=== PATIENT | male | born 1945 | race Caucasian/White ===

== ENCOUNTER 2022-03-08 10:58 | Emergency (ER) | payer MEDICARE ==
[~2022-03-08 10:58] MED LIST: LISINOPRIL20 MG PO; METFORMIN HCL1000 MG PO; PIOGLITAZONE HC45 MG PO; ZANTAC 150 MG150 MG PO; ZOCOR20 MG PO
[2022-03-08 13:47] LABS: HEMOGLOBIN 11.3 gm/dl (14.0-17.5); RED BLOOD COUNT 3.86 M/UL (4.20-5.50); WHITE BLOOD COUNT 9.5 K/UL (4.5-11.0)
[2022-03-08 14:20] LABS: BUN/CREATININE RATIO 18 (0-10)
[2022-03-08] MEDS ORDERED: LEVOFLOXACIN750 MG PO ×2 (14:46→15:11)
== END 2022-03-08 15:20 | disposition home or self-care (01) ==
LOC: ER1 10:58
PROVIDERS: Physician Assistant
DX: S61.032A Puncture wound without foreign body of left thumb without damage to nail, initial encounter (principal); L03.012 Cellulitis of left finger; F17.200 Nicotine dependence, unspecified, uncomplicated; E11.9 Type 2 diabetes mellitus without complications; Z23 Encounter for immunization; W45.8XXA Other foreign body or object entering through skin, initial encounter; Y92.009 Unspecified place in unspecified non-institutional (private) residence as the place of occurrence of the external cause
CPT/HCPCS: 73130; 80053; 85007; 85027; 86140; 87040; 90471; 90714; 96365; 96375; 99283; J1885; J1956

== ENCOUNTER 2022-03-09 19:16 | Inpatient (IN) | payer MEDICARE ==
[~2022-03-09] VITALS: Ht 177.8 cm; Wt 94.8 kg
[~2022-03-09 19:16] MED LIST changes: +LEVOFLOXACIN750 MG PO
[2022-03-09 20:08] LABS: HEMOGLOBIN 11.8 gm/dl (14.0-17.5); RED BLOOD COUNT 4.01 M/UL (4.20-5.50); WHITE BLOOD COUNT 8.5 K/UL (4.5-11.0)
[2022-03-10 06:19] LABS: HEMOGLOBIN 10.4 gm/dl (14.0-17.5); RED BLOOD COUNT 3.61 M/UL (4.20-5.50)
[2022-03-10] MEDS ORDERED: FAMOTIDINE40 MG PO (12:02)
[2022-03-10] MEDS ORDERED: AMLODIPINE BESY10 MG PO (12:10)
[2022-03-10] MEDS ORDERED: SIMVASTATIN20 MG PO (12:12)
[2022-03-11 07:03] LABS: HEMOGLOBIN 11.1 gm/dl (14.0-17.5); RED BLOOD COUNT 3.81 M/UL (4.20-5.50)
[2022-03-11 07:49] LABS: BUN/CREATININE RATIO 16 (0-10)
[2022-03-12 05:40] LABS: HEMOGLOBIN 11.8 gm/dl (14.0-17.5); RED BLOOD COUNT 4.03 M/UL (4.20-5.50); WHITE BLOOD COUNT 6.2 K/UL (4.5-11.0)
[2022-03-13 06:17] LABS: HEMOGLOBIN 10.9 gm/dl (14.0-17.5); RED BLOOD COUNT 3.8 M/UL (4.20-5.50); WHITE BLOOD COUNT 6.8 K/UL (4.5-11.0)
[2022-03-13 06:39] LABS: BUN/CREATININE RATIO 18 (0-10)
[2022-03-14 07:06] LABS: HEMOGLOBIN 11.1 gm/dl (14.0-17.5); RED BLOOD COUNT 3.8 M/UL (4.20-5.50); WHITE BLOOD COUNT 6.6 K/UL (4.5-11.0)
[2022-03-14 07:16] LABS: BUN/CREATININE RATIO 20 (0-10)
[2022-03-14] MEDS ORDERED: CLINDAMYCIN HC300 MG PO ×2 (09:15)
[2022-03-14] MEDS ORDERED: HYDROCODON-ACE1 EAC4 PO (09:16)
== END 2022-03-14 14:26 | disposition home or self-care (01) | DRG 603 ==
LOC: ER1 19:16 → M/S 23:40 → CDU 23:40 → M/S 03-10 15:21
PROVIDERS: Internal Medicine; Physician Assistant; ADMIT Internal Medicine
DX: L03.012 Cellulitis of left finger (principal); N17.9 Acute kidney failure, unspecified; Z20.822 Contact with and (suspected) exposure to COVID-19; E78.00 Pure hypercholesterolemia, unspecified; E11.9 Type 2 diabetes mellitus without complications; I10 Essential (primary) hypertension; F17.210 Nicotine dependence, cigarettes, uncomplicated; E86.0 Dehydration; Z79.4 Long term (current) use of insulin; Z90.49 Acquired absence of other specified parts of digestive tract
CPT/HCPCS: 36415; 73130; 80048; 80053; 80202; 82962; 83605; 85025; 85027; 85652; 86140; 86141; 87040; 96365; 96366; 96367; 96375; 96376; 99284; J1650; J2270; J2543; J3370; J7070; U0002